=== PATIENT | male | born 1985 | race Caucasian/White ===

== ENCOUNTER 2017-04-11 22:12 | Emergency (ER) | payer SELFPAY | END 2017-04-12 02:02 | disposition home or self-care (01) | LOC: ER 22:12 | DX: R10.9 Unspecified abdominal pain (principal); R31.9 Hematuria, unspecified; R11.2 Nausea with vomiting, unspecified; J45.909 Unspecified asthma, uncomplicated; F17.210 Nicotine dependence, cigarettes, uncomplicated; F41.0 Panic disorder [episodic paroxysmal anxiety]; K21.9 Gastro-esophageal reflux disease without esophagitis; Z87.442 Personal history of urinary calculi; Z90.49 Acquired absence of other specified parts of digestive tract; Z88.5 Allergy status to narcotic agent; Z79.899 Other long term (current) drug therapy | CPT/HCPCS: 36415; 96361; 96374; 96375; 96376; J1885 ==

== ENCOUNTER 2017-05-17 23:32 | Emergency (ER) | payer SELFPAY | END 2017-05-18 02:10 | disposition home or self-care (01) | LOC: ER 23:32 | DX: N20.1 Calculus of ureter (principal); K21.9 Gastro-esophageal reflux disease without esophagitis; F41.9 Anxiety disorder, unspecified; F17.210 Nicotine dependence, cigarettes, uncomplicated; Z88.8 Allergy status to other drugs, medicaments and biological substances; Z79.899 Other long term (current) drug therapy | CPT/HCPCS: 36415; 96374; 96375; 96376; J1885 ==